=== PATIENT | female | born 1930 | race Caucasian/White ===

== ENCOUNTER 2017-07-17 05:30 | Observation (INO) | payer MEDICAID, OTHER ==
[~2017-07-17] VITALS: Ht 160 cm; Wt 65.0 kg
[~2017-07-17 05:30] MED LIST: AMLO5TAB4 PO; ATOR10TA65 PO; COU25 PO; DULO30CA45 PO; ENOX80DI2 SC; FURO40TA4 PO; GABA300C16 PO; GLIP5TAB13 PO; HYDR-902 PO; METO-448 PO; POTA8CAP PO
[2017-07-17 05:56] VITALS: Ht 160 cm; Wt 65.0 kg
[2017-07-17] MEDS ORDERED: DILTIAZEM 25 MG INJ IV ONE ×2 (06:00→07:30)
[2017-07-17 06:28] LABS: BASOPHIL # 0.1 10^3/ul (0.0-0.1); BASOPHILS % 0.6 % (0.0-2.0); EOSINOPHILS # 0.1 10^3/ul (0.0-0.5); EOSINOPHILS % 0.9 % (0.0-7.0); HEMATOCRIT 39.3 % (37.0-47.0); HEMOGLOBIN 12.8 g/dl (12.0-16.0); LYMPHOCYTES # 1.8 10^3/ul (0.8-2.9); MEAN CORPUSCULAR HEMOGLOBIN 29.1 pg (29.0-33.0); MEAN CORPUSCULAR HGB CONC 32.6 g/dl (32.0-37.0); MEAN CORPUSCULAR VOLUME 89.3 fl (82.0-101.0); MONOCYTE # 0.8 10^3/ul (0.3-0.9); MONOCYTES % 8.9 % (0.0-11.0); NEUTROPHIL # 6.3 10^3/ul (1.6-7.5); NEUTROPHILS % 69.4 % (39.0-77.0); PLATELET COUNT 210 10^3/UL (140-415); RED CELL DISTRIBUTION WIDTH 13.4 % (11.5-14.5); WHITE BLOOD COUNT 9.1 10^3/ul (4.8-10.8)
[2017-07-17 06:42] LABS: INR 1.28; PARTIAL THROMBOPLASTIN TIME 32.7 Sec (25.0-35.0); PROTIME 16.1 Sec (12.2-14.2); PT RATIO 1.3
--- NOTE | 2017-07-17 06:48 | ERA ---
ER Documentation Chief Complaint Date/Time DATE: 07/17/17 TIME: 06:31 Chief Complaint Chest pain and Afib HPI Patient is an 86-year-old female who presents with sudden onset, constant, moderate palpitations since last night. She states that she feels like her heart is beating rapidly. She denies chest pain or shortness of breath. She denies lightheadedness. She denies cough. She also complains of gradual onset , constant, moderate right leg pain from her foot to her knee since yesterday. She denies fall or trauma. She denies fever or vomiting. History is limited due to cognitive impairment. ROS All systems reviewed and are negative except as per history of present illness. Medications Home Meds Active Scripts Warfarin Sod (Coumadin) 2.5 Mg Tab, 5 MG PO DAILY@17 for 14 Days, #14 TAB Prov:SUSHIL WALL MD 06/06/16 Metoprolol Tartrate* (Lopressor*) 25 Mg Tab, 25 MG PO BID for 30 Days, #60 TAB Prov:SUSHIL WALL MD 06/06/16 Enoxaparin Sodium (Enoxaparin Sodium) 80 Mg/0.8 Ml Syringe, 75 MG SC Q12 for 3 Days, BOT Prov:SUSHIL WALL MD 06/06/16 Gabapentin* (Gabapentin*) 300 Mg Capsule, 300 MG PO TID for 30 Days, #90 CAP Prov:SUSHIL AWLL MD 06/06/16 Reported Medications Hydrocodone/Acetaminophen ([place] 10-325 Tablet) 1 Each Tablet, 1 EACH PO BID for 4 Days, #8 TAB 06/03/16 Duloxetine Hcl* (Cymbalta*) 30 Mg Capsule.dr, 30 MG PO DAILY, CAP 07/21/15 Atorvastatin Calcium (Atorvastatin Calcium) 10 Mg Tab, 10 MG PO HS, TAB 07/21/15 Amlodipine Besylate* (Norvasc*) 5 Mg Tablet, 5 MG PO DAILY, TAB 07/21/15 Potassium Chloride* (Potassium Chloride*) 8 Meq Capsule.er, 8 MEQ PO DAILY, CAP 07/21/15 Glipizide* (Glipizide*) 5 Mg Tablet, 5 MG PO DAILY, TAB 07/21/15 Furosemide (Lasix) 40 Mg Tab, 40 MG PO DAILY 05/09/13 Allergies Allergies: Coded Allergies: No Known Allergy (Unverified , 06/03/16) PMhx/Soc Past medical history: Diabetes mellitus, COPD, atrial fibrillation, peripheral neuropathy, mild cognitive impairment Past surgical history: Denies Social history: Lives in assisted living, denies tobacco or alcohol History of Surgery: Yes (L breast lumpectomy, hysterectomy, L ankle sx) Anesthesia Reaction: No Hx Neurological Disorder: Yes (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, multiple CVAs) Hx Respiratory Disorders: No Hx Cardiac Disorders: Yes (dyslipidemia, HTN) Hx Psychiatric Problems: Yes (depression) Hx Miscellaneous Medical Probl: No Hx Alcohol Use: No Hx Substance Use: No Hx Tobacco Use: No Smoking Status: Never smoker FmHx Noncontributory Physical Exam Vitals Vital Signs Date Time Temp Pulse Resp B/P Pulse Ox O2 Delivery O2 Flow Rate FiO2 07/17/17 13:15 69 18 112/48 98 Room Air 07/17/17 12:31 136 18 143/69 98 Room Air 07/17/17 09:42 142 18 118/62 98 Room Air 07/17/17 08:14 129 20 109/95 98 Room Air 07/17/17 07:19 140 18 108/56 98 Room Air 07/17/17 06:59 138 20 121/86 98 Room Air 07/17/17 05:56 97.6 165 19 121/71 95 Physical Exam Const: Alert, no acute distress Head: Atraumatic Eyes: Normal Conjunctiva, No pallor, no icterus ENT: Normal External Ears, Nose and Mouth. Mucous membranes moist Neck: Full range of motion..~ No meningismus. No JVD Resp: Clear to auscultation bilaterally, No wheezes, no rales Cardio: Tachycardia, irregularly irregular rhythm, no murmurs Abd: Soft, non tender, non distended. Skin: No petechiae or rashes Back: No midline or flank tenderness Ext: No cyanosis, or edema, 2+ DP pulses, 2 second cap refill all digits, no calf tenderness, no erythema, no focal tenderness. Neur: Awake and alert, Cranial nerves II through XII intact bilaterally, strength and sensation full in 4 extremities. Psych: Normal Mood and Affect Result Diagram: 07/17/1745 07/17/1745 Results 24 hrs Laboratory Tests Test 07/17/17 05:45 White Blood Count 9.110^3/ul Red Blood Count 4.4010^6/ul Hemoglobin 12.8g/dl Hematocrit 39.3% Mean Corpuscular Volume 89.3fl Mean Corpuscular Hemoglobin 29.1pg Mean Corpuscular Hemoglobin Concent 32.6g/dl Red Cell Distribution Width 13.4% Platelet Count 13387^3/UL Mean Platelet Volume 12.0fl Neutrophils % 69.4% Lymphocytes % 20.0% Monocytes % 8.9% Eosinophils % 0.9% Basophils % 0.6% Nucleated Red Blood Cells % 0.0/100WBC Neutrophils # 6.310^3/ul Lymphocytes # 1.810^3/ul Monocytes # 0.810^3/ul Eosinophils # 0.110^3/ul Basophils # 0.110^3/ul Nucleated Red Blood Cells # 0.010^3/ul Prothrombin Time 16.1Sec Prothrombin Time Ratio 1.3 INR International Normalized Ratio 1.28 Activated Partial Thromboplast Time 32.7Sec Sodium Level 139mmol/L Potassium Level 3.6mmol/L Chloride Level 104mmol/L Carbon Dioxide Level 27mmol/L Anion Gap 12 Blood Urea Nitrogen 14mg/dl Creatinine 0.70mg/dl Glucose Level 183mg/dl Hemoglobin A1c 6.8% Calcium Level 9.2mg/dl Troponin I 0.013ng/ml B-Type Natriuretic Peptide 174PG/ML Thyroid Stimulating Hormone (TSH) 0.804MIU/L Free Thyroxine 1.34ng/dl Current Medications Medications (Trade) Dose Ordered Sig/Mary Route PRN Reason Start Time Stop Time Status Last Admin Dose Admin Diltiazem HCl (Cardizem Iv) 20 mg ONCE ONCE IV 07/17/17 06:00 07/17/17 06:01 DC 07/17/17 06:11 Diltiazem HCl 10 mg 10 mg ONCE ONCE IV 07/17/17 07:30 07/17/17 07:31 DC 07/17/17 07:23 Diltiazem HCl (Cardizem-D5W 125 Mg/125 ml Drip) 125 ml @ 5 mls/hr TITRATE IV 07/17/17 07:30 07/17/17 07:24 Enoxaparin Sodium (Lovenox) 65 mg ONCE SC 07/17/17 08:00 07/17/17 08:06 DC 07/17/17 08:47 Haloperidol (Haldol) 2 mg ONCE ONCE IV 07/17/17 08:30 07/17/17 08:31 DC 07/17/17 08:28 Lorazepam (Ativan) 0.5 mg ONCE ONCE IV 07/17/17 09:00 07/17/17 09:01 DC 07/17/17 08:44 Ondansetron HCl (Zofran Inj) 4 mg ER BRIDGE PRN IV NAUSEA AND/OR VOMITING 07/17/17 09:00 07/18/17 08:59 Acetaminophen (Tylenol Tab) 650 mg ER BRIDGE PRN PO MILD PAIN/FEVER 07/17/17 09:00 07/18/17 08:59 IV Flush (NS 3 ml) 3 ml PER PROTOCOL IV 07/17/17 09:30 Ondansetron HCl (Zofran Inj) 4 mg Q6H PRN IV NAUSEA AND/OR VOMITING 07/17/17 09:30 Acetaminophen (Tylenol Tab) 650 mg Q6H PRN PO PAIN LEVEL 1-3 OR FEVER 07/17/17 09:30 Acetaminophen/ Hydrocodone Bitart ([place] (5/325)) 1 tab Q6H PRN PO PAIN LEVEL 4-6 07/17/17 09:30 Amlodipine Besylate (Norvasc) 5 mg DAILY PO 07/18/17 09:00 Atorvastatin Calcium (Lipitor) 10 mg HS PO 07/17/17 21:00 Duloxetine HCl (Cymbalta) 30 mg DAILY PO 07/18/17 09:00 Furosemide (Lasix) 40 mg DAILY PO 07/18/17 09:00 Gabapentin (Neurontin) 300 mg TID PO 07/17/17 13:00 Metoprolol Tartrate (Lopressor) 25 mg BID PO 07/17/17 21:00 Enoxaparin Sodium (Lovenox) 65 mg Q12 SC 07/17/17 21:00 Miscellaneous Information (* Miscellaneous Pharmacy Order) Discontinue current oral sulfonylur... ONCE ONCE XX 07/17/17 10:00 07/17/17 10:01 DC Diagnostic Test (Pha) (Accu-Chek) 1 ea 02 XX 07/18/17 02:00 Insulin Glargine (Lantus) 10 unit DAILY@08 SC 07/18/17 08:00 Insulin Aspart (Novolog Insulin Pen) 3 unit WITH MEALS SC 07/17/17 12:00 Miscellaneous Information (* Miscellaneous Pharmacy Order) HYPOGLYCEMIA PROTOCOL w... ONCE ONCE XX 07/17/17 10:00 07/17/17 10:01 DC Insulin Aspart (Novolog Insulin Pen) NOVOLOG *MILD* ALGORITHM WITH MEALS BEDTIME SC 07/17/17 12:00 Miscellaneous Information (* Miscellaneous Pharmacy Order) Discontinue all previ... ONCE ONCE XX 07/17/17 10:00 07/17/17 10:01 DC Miscellaneous Information 1 ea NOTE XX 07/17/17 10:00 Glucose (Glutose) 15 gm Q15M PRN PO DECREASED GLUCOSE 07/17/17 10:00 Glucose (Glutose) 22.5 gm Q15M PRN PO DECREASED GLUCOSE 07/17/17 10:00 Dextrose (D50w Syringe) 25 ml Q15M PRN IV DECREASED GLUCOSE 07/17/17 10:00 Dextrose (D50w Syringe) 50 ml Q15M PRN IV DECREASED GLUCOSE 07/17/17 10:00 Glucagon (Glucagen) 1 mg Q15M PRN IM DECREASED GLUCOSE 07/17/17 10:00 Glucose (Glutose) 15 gm Q15M PRN BUCCAL DECREASED GLUCOSE 07/17/17 10:00 Haloperidol (Haldol) 2 mg ONCE ONCE IV 07/17/17 12:00 07/17/17 12:01 DC 07/17/17 12:33 Lorazepam (Ativan) 0.5 mg ONCE ONCE IV 07/17/17 12:30 07/17/17 12:35 DC 07/17/17 12:30 Aspirin (Aspirin) 81 mg ONCE ONCE PO 07/17/17 15:00 07/17/17 15:01 UNV Procedures/MDM EKG read by me: Time 538, rate 152 Rhythm: Rapid atrial fibrillation Bishop: Normal Intervals: Normal ST-T waves: ST depression in inferior and lateral leads, ST elevation in aVR only Ectopy: No Q-waves: No Impression: Rapid atrial fibrillation with ST depressions suggestive of ischemia MDM: Patient is an 86-year-old female with history of chronic atrial fibrillation on Coumadin who presents to the ER with palpitations since last night. She initially reported chest pain, but to me denies chest pain or shortness of breath. She was given an initial bolus of 20 mg of diltiazem without rate control. I gave an additional bolus of 10 mg of diltiazem and started her on a diltiazem drip. Patient had borderline blood pressure after the second bolus of diltiazem and was monitored closely. Her EKG showed ST depressions, but her troponin was not elevated. She is given a dose of Lovenox due to subtherapeutic INR. She will be admitted to telemetry for further cardiac workup and treatment. Critical Care Time: 32 minutes Treatments/Evaluations: Close monitoring and treatment of unstable vital signs, cardiorespiratory, and neurologic status, while maintaining tight balance of fluid, respiratory, and cardiac interventions. This time includes discussing the case with the patient and the patient's family. This time does not include all procedures stated elsewhere in this record. This time also includes reviewing old records, labs and radiological studies. This time includes examining and re-examining the patient. Additionally, this time also includes arranging care with admitting and consulting physicians. Departure Diagnosis: Primary Impression: Atrial fibrillation with rapid ventricular response Condition: MARNIE Rivera MD Jul 17, 2017 06:47
[2017-07-17 07:00] LABS: CALCIUM 9.2 mg/dl (8.4-10.2); CREATININE 0.7 mg/dl (0.44-1.00); POTASSIUM 3.6 mmol/L (3.5-5.1); TROPONIN-I 0.013 ng/ml (0.00-0.12)
--- NOTE | 2017-07-17 07:25 | RADRPT ---
PROCEDURE: CHEST - 1 VIEW CLINICAL INDICATION: 86-year-old female with chest pain. TECHNIQUE: A single frontal AP view of the chest was performed. The images were reviewed on a PAC S workstation. COMPARISON: Chest x-ray June 03, 2016. FINDINGS: The cardiomediastinal silhouette is within normal limits. The thoracic aortic arch is calcified. Th ere is no evidence for an infiltrate. There is no evidence for congestive heart failure. There is n o evidence for pneumothorax. Degenerative changes are seen within the spine. IMPRESSION: 1. No evidence for active cardiopulmonary disease. 2. Calcified thoracic aortic arch. 3. Degenerative changes within the spine. .Alberto Mckeon MD, Date Time Electronically viewed and signed by .Alberto Mckeon MD, on 07/17/2017 07:25 .Rylan
[2017-07-17] MEDS ORDERED: DILTIAZEM-D5W 125MG/125ML DRIP 125 ML IV SCH (07:30)
[2017-07-17] MEDS ORDERED: ENOXAPARIN 80 MG/0.8 ML SYG SC SCH (08:00)
[2017-07-17] MEDS ORDERED: HALOPERIDOL 5 MG INJ IV ONE ×2 (08:30→12:00)
[2017-07-17] MEDS ORDERED: ONDANSETRON 4 MG INJ IV PRN ×2 (09:00→09:30)
[2017-07-17] MEDS ORDERED: ACETAMINOPHEN 325 MG TAB PO PRN ×2 (09:00→09:30)
[2017-07-17] MEDS ORDERED: LORAZEPAM 2 MG INJ IV ONE ×2 (09:00→12:30)
[2017-07-17] MEDS ORDERED: NACL 0.9% 3 ML SYG IV SCH (09:30)
--- NOTE | 2017-07-17 09:47 | HP ---
Date/Time of Note Date/Time of Note DATE: 07/17/17 TIME: 09:43 Assessment/Plan VTE Prophylaxis VTE Prophylaxis Intervention: LMWH (Therapeutic anticoagulation) Lines/Catheters IV Catheter Type (from [facility] [place] Assessment/Plan Chief Complaint/Hosp Course 1. Atrial fibrillation with rapid ventricular response. Status post IV Cardizem push followed by Cardizem drip. Currently the heart rate is controlled. The patient has known history of atrial fibrillation. The patient is on Coumadin. However, the patient's INR is not therapeutic. Hence, the patient will be started on therapeutic Lovenox. Cardiology will evaluate the patient. The patient will be ruled out for any underlying acute coronary syndrome. 2. Essential hypertension. The patient has history of essential hypertension. The patient will be resumed on antihypertensives. 3. Type 2 diabetes mellitus. The patient's sulfonylureas will be put on hold. The patient will be started on sliding scale insulin along with basal insulin and pre-meal insulin. Hemoglobin A1c will be obtained to evaluate the blood glucose control over the past few weeks. 4. Diabetic neuropathy. The patient will be continued on gabapentin. 5. Depression. The patient will be continued on SNRIs. 6. Dyslipidemia. The patient will be continued on statins. A fasting lipid panel will be obtained. 7. History of stroke. Continue anticoagulation and statins. Plan: The patient will be admitted to inpatient telemetry floor. The patient will be started on a carbohydrate controlled diet. The patient will be started on DVT prophylaxis. The patient will remain a full code. Activities will be as tolerated. The rest of the patient's management will be based on the clinical course, inputs from consultants, and the results of diagnostic studies. Based on the patient's clinical presentation, she most probably requires at least 2 midnights' stay for further management and evaluation of her clinical presentation. The case and management of this patient was fully discussed with . Problems: HPI/ROS Admit Date/Time Admit Date/Time Hx of Present Illness Reason for admission: Palpitations. Consultants 1. Brown Boo MD, Cardiology. This is an 86-year-old female with past medical history of atrial fibrillation on therapeutic anticoagulation, type 2 diabetes mellitus with diabetic neuropathy, dyslipidemia, CVA, essential hypertension, chronic degenerative arthritis, and depression who was brought in from a assisted living facility because of palpitations as well as chest pain. Patient was given aspirin 162 mg and 1 dose of sublingual nitroglycerin enroute to the emergency room. According to the ER documentation, chest pain has been resolved once she arrived to the emergency room. There was no reported dyspnea. In the emergency room, the patient was tachycardic with the heart rate up to 160s. The patient was treated with IV Cardizem and single dose of subcutaneous Lovenox. The patient was started on a Cardizem drip because of sustained atrial fibrillation. The patient was reportedly impulsive and restless. Hence the patient was given IV lorazepam as well as IV Haldol in the emergency room. ROS Subjective hx not possible: other (The patient is sedated with Haldol and lorazepam.) PMH/Family/Social Past Medical History Medical History: diabetes, high cholesterol, hypertension, other (CVA, diabetic neuropathy, depression) Past Surgical History Hysterectomy due to bleeding Left ankle surgery Left breast lumpectomy for a benign mass Social History Patient lives in an assisted living facility. Alcohol Use: none Smoking Status: Never smoker Drug Use: none Exam/Review of Systems Vital Signs Vitals Vital Signs Date Time Temp Pulse Resp B/P Pulse Ox O2 Delivery O2 Flow Rate FiO2 07/17/17 07:19 140 18 108/56 98 Room Air 07/17/17 05:56 97.6 Exam Exam General: Adequately build 86 year-old female lying in bed in no apparent distress. HEENT: Normocephalic, atraumatic. Eyes: Anicteric sclerae, conjunctivae clear. ENT: Nasal septum midline, oral mucosa moist. Neck supple, no JVD noticed. Respiratory: Bilaterally clear breath sounds. No use of accessory muscles of respiration. No adventitious breath sounds. Cardiovascular: S1, S2 heard. Irregularly irregular rhythm. Abdomen: Soft, nontender, and nondistended. Bowel sounds positive in all 4 quadrants. Genitourinary: Deferred. Extremities: No cyanosis, no clubbing. Bilateral lower extremity trace pedal edema., no edema. Peripheral pulses palpable. Neurologic: She is currently somnolent. Skin: Normal skin turgor. No skin rashes. Labs Result Diagram: 07/17/1754407/17/17544 Medications Medications Current Medications Diltiazem HCl (Cardizem-D5W 125 Mg/125 ml Drip) 125 ml @ 5 mls/hr TITRATE IV Last administered on 07/17/17t 07:24; Admin Dose 5 MLS/HR; Start 07/17/17 at 07: 30 Procedures Procedures CXR IMPRESSION: 1. No evidence for active cardiopulmonary disease. 2. Calcified thoracic aortic arch. 3. Degenerative changes within the spine. 12-Lead EKG A. fib with RVR JULIANN VALDES NP Jul 17, 2017 09:47 JULIANN VALDES NP Jul 17, 2017 09:47
[2017-07-17] MEDS ORDERED: DEXTROSE 50% 50 ML SYRINGE IV PRN ×2 (10:00)
[2017-07-17] MEDS ORDERED: GLUCOSE GEL 15 GRAM TUBE BUCCAL PRN (10:00)
[2017-07-17] MEDS ORDERED: GLUCOSE GEL 15 GRAM TUBE PO PRN ×2 (10:00)
[2017-07-17] MEDS ORDERED: GLUCAGON 1 MG INJ IM PRN (10:00)
[2017-07-17] MEDS: INSULIN ASPART [NOVOLOG] 3 ML PEN SC SCH ×3 (12:00→21:00)
[2017-07-17] MEDS: GABAPENTIN 300 MG CAP PO SCH ×2 (13:00→21:30)
[2017-07-17] MEDS ORDERED: ASPIRIN 81 MG TAB PO ONE (15:00)
--- NOTE | 2017-07-17 15:03 | CONS ---
Date/Time of Note Date/Time of Note DATE: 07/17/17 TIME: 14:56 Assessment/Plan Assessment/Plan Chief Complaint/Hosp Course Paroxysmal atrial fibrillation with RVR: Initially on a cardizem drip, now back on sinus. Was on coumadin as of last year's admission, now appears to be off for unclear reasons. Possibly switch to NOAC instead for ease of use in this pt. Dyspnea/chest pain: Likely from afib with RVR. EKG did show ST changes during afib and the pt likely has underlying CAD but will treat medically H/o diastolic heart failure: appears compensated by exam. H/o CVA HTN -ASA, lipitor -metoprolol 25mg PO BID -if recurrent afib with RVR, may even consider amiodarone superintendent terminal for her -will consider starting NOAC pending further test results -echo Problems: Consultation Date/Type/Reason Admit Date/Time Date of Consultation: Jul 17, 2017 Type of Consultation: Cardiology Reason for Consultation Afib with RVR Referring Provider: JULIANN VALDES NP Hx of Present Illness 86 yo F with a h/o paroxysmal afib previously on coumadin, h/o CVA, dementia, HTN, CHF, who presented from her assisted living facility with chest pain and SOB and was found to have afib with RVR (rate 150-160s). The pt was placed on a diltiazem drip and currently is back in sinus. She was agitated and so she has been given ativan and haldol. She is awake and responsive but confused and unable to provide history. Past Medical History Medical History: diabetes, high cholesterol, hypertension, other (CVA, diabetic neuropathy, depression) Social History Alcohol Use: none Smoking Status: Never smoker Drug Use: none Exam/Review of Systems Vital Signs Vitals Vital Signs Date Time Temp Pulse Resp B/P Pulse Ox O2 Delivery O2 Flow Rate FiO2 07/17/17 13:15 69 18 112/48 98 Room Air 07/17/17 05:56 97.6 Exam Constitutional: alert, No oriented Psych: no complaints Head: atraumatic, normocephalic Eyes: nl conjunctiva ENMT: nl external ears & nose Neck: No jvd Respiratory: clear to auscultation Cardiovascular: regular rate and rhythm, systolic murmur (2/6 DOT), No edema Gastrointestinal: non-tender, soft Neurological: nl mental status, nl speech Skin: No rash or lesions Results EKG: afib with RVR, diffuse mild ST depression and YOSSI in AVR Result Diagram: 07/17/1745 07/17/1745 Results 24 hrs Laboratory Tests Test 07/17/17 05:45 White Blood Count 9.1 # Red Blood Count 4.40 Hemoglobin 12.8 Hematocrit 39.3 Mean Corpuscular Volume 89.3 Mean Corpuscular Hemoglobin 29.1 Mean Corpuscular Hemoglobin Concent 32.6 Red Cell Distribution Width 13.4 Platelet Count 210 Mean Platelet Volume 12.0 #H Neutrophils % 69.4 Lymphocytes % 20.0 Monocytes % 8.9 Eosinophils % 0.9 Basophils % 0.6 Nucleated Red Blood Cells % 0.0 Neutrophils # 6.3 Lymphocytes # 1.8 Monocytes # 0.8 Eosinophils # 0.1 Basophils # 0.1 Nucleated Red Blood Cells # 0.0 Prothrombin Time 16.1 H Prothrombin Time Ratio 1.3 INR International Normalized Ratio 1.28 Activated Partial Thromboplast Time 32.7 Sodium Level 139 Potassium Level 3.6 Chloride Level 104 Carbon Dioxide Level 27 Anion Gap 12 Blood Urea Nitrogen 14 Creatinine 0.70 Glucose Level 183 Hemoglobin A1c 6.8 H Calcium Level 9.2 Troponin I 0.013 B-Type Natriuretic Peptide 174 Thyroid Stimulating Hormone (TSH) 0.804 Free Thyroxine 1.34 Medications Medications Current Medications Diltiazem HCl (Cardizem-D5W 125 Mg/125 ml Drip) 125 ml @ 5 mls/hr TITRATE IV Last administered on 07/17/17t 07:24; Admin Dose 5 MLS/HR; Start 07/17/17 at 07: 30 Ondansetron HCl (Zofran Inj) 4 mg Q6H PRN IV NAUSEA AND/OR VOMITING; Start 07/17/17 at 09:30 Acetaminophen (Tylenol Tab) 650 mg Q6H PRN PO PAIN LEVEL 1-3 OR FEVER; Start 07/17/17 at 09:30 Acetaminophen/ Hydrocodone Bitart ([place] (5/325)) 1 tab Q6H PRN PO PAIN LEVEL 4 -6; Start 07/17/17 at 09:30 Amlodipine Besylate (Norvasc) 5 mg DAILY PO ; Start 07/18/17 at 09:00 Atorvastatin Calcium (Lipitor) 10 mg HS PO ; Start 07/17/17 at 21:00 Duloxetine HCl (Cymbalta) 30 mg DAILY PO ; Start 07/18/17 at 09:00 Furosemide (Lasix) 40 mg DAILY PO ; Start 07/18/17 at 09:00 Gabapentin (Neurontin) 300 mg TID PO ; Start 07/17/17 at 13:00 Metoprolol Tartrate (Lopressor) 25 mg BID PO ; Start 07/17/17 at 21:00 Enoxaparin Sodium (Lovenox) 65 mg Q12 SC ; Start 07/17/17 at 21:00 Diagnostic Test (Pha) (Accu-Chek) 1 ea 02 XX ; Start 07/18/17 at 02:00 Insulin Glargine (Lantus) 10 unit DAILY@08 SC ; Start 07/18/17 at 08:00 Miscellaneous Information 1 ea NOTE XX ; Start 07/17/17 at 10:00 Glucose (Glutose) 15 gm Q15M PRN PO DECREASED GLUCOSE; Start 07/17/17 at 10:00 Glucose (Glutose) 22.5 gm Q15M PRN PO DECREASED GLUCOSE; Start 07/17/17 at 10: 00 Dextrose (D50w Syringe) 25 ml Q15M PRN IV DECREASED GLUCOSE; Start 07/17/17 at 10:00 Dextrose (D50w Syringe) 50 ml Q15M PRN IV DECREASED GLUCOSE; Start 07/17/17 at 10:00 Glucagon (Glucagen) 1 mg Q15M PRN IM DECREASED GLUCOSE; Start 07/17/17 at 10:00 Glucose (Glutose) 15 gm Q15M PRN BUCCAL DECREASED GLUCOSE; Start 07/17/17 at 10 :00 TONY MCCLELLAND Jul 17, 2017 15:03
[2017-07-17 18:09] VITALS: PULSE 66
[2017-07-17 18:11] VITALS: PULSE 66
[2017-07-17 19:06] VITALS: BP 130/60; RESP 17
[2017-07-17 19:34] LABS: CREATINE KINASE 143 IU/L (23-200)
[2017-07-17 19:45] LABS: CK-MB 1.48 ng/ml (0.0-2.4)
[2017-07-17 19:46] LABS: TROPONIN-I < 0.012 ng/ml (0.00-0.12)
[2017-07-17 20:23] VITALS: PULSE 64
[2017-07-17] MEDS: HYDROCODONE/APAP (5/325) TAB PO PRN (21:29)
[2017-07-17] MEDS: ATORVASTATIN 10 MG TAB PO SCH (21:29)
[2017-07-17] MEDS: METOPROLOL 25 MG TAB PO SCH (21:31)
[2017-07-17] MEDS: ENOXAPARIN 80 MG/0.8 ML SYG SC SCH (21:46)
[2017-07-17 23:18] VITALS: BP 135/61; RESP 18
[2017-07-18] VITALS (12 sets, daily range): BP systolic 104–153; BP diastolic 51–85; PULSE 59–66; RESP 16–20
[2017-07-18 01:49] LABS: CREATINE KINASE 152 IU/L (23-200)
[2017-07-18] MEDS: ACCU-CHEK XX SCH (01:58)
[2017-07-18 02:01] LABS: CK-MB 1.27 ng/ml (0.0-2.4)
[2017-07-18 02:27] LABS: TROPONIN-I < 0.012 ng/ml (0.00-0.12)
[2017-07-18] MEDS: HYDROCODONE/APAP (5/325) TAB PO PRN (03:18)
[2017-07-18 05:58] LABS: BASOPHIL # 0.1 10^3/ul (0.0-0.1); BASOPHILS % 0.8 % (0.0-2.0); EOSINOPHILS # 0.3 10^3/ul (0.0-0.5); EOSINOPHILS % 4.6 % (0.0-7.0); HEMATOCRIT 37.8 % (37.0-47.0); HEMOGLOBIN 12.2 g/dl (12.0-16.0); LYMPHOCYTES # 1.5 10^3/ul (0.8-2.9); LYMPHOCYTES % 23.9 % (15.0-51.0); MEAN CORPUSCULAR HEMOGLOBIN 29.6 pg (29.0-33.0); MEAN CORPUSCULAR HGB CONC 32.3 g/dl (32.0-37.0); MEAN CORPUSCULAR VOLUME 91.7 fl (82.0-101.0); MEAN PLATELET VOLUME 11.9 fl (7.4-10.4); MONOCYTE # 0.6 10^3/ul (0.3-0.9); MONOCYTES % 9.5 % (0.0-11.0); NEUTROPHIL # 3.9 10^3/ul (1.6-7.5); NEUTROPHILS % 60.9 % (39.0-77.0); PLATELET COUNT 188 10^3/UL (140-415); RED BLOOD COUNT 4.12 10^6/ul (4.20-5.40); RED CELL DISTRIBUTION WIDTH 13.2 % (11.5-14.5); WHITE BLOOD COUNT 6.3 10^3/ul (4.8-10.8)
[2017-07-18 06:10] LABS: INR 1.18; PROTIME 15.1 Sec (12.2-14.2); PT RATIO 1.2
[2017-07-18 06:19] LABS: CHOL/HDL RATIO 2.3 RATIO; CHOLESTEROL 131 mg/dl (100-200); HDL CHOLESTEROL 56 mg/dl (33-92); MAGNESIUM 2.1 mg/dl (1.7-2.5); PHOSPHORUS 3.3 mg/dl (2.5-4.9); TRIGLYCERIDES 101 mg/dl (0-149)
[2017-07-18 06:25] LABS: CALCIUM 8.8 mg/dl (8.4-10.2); CREATININE 0.66 mg/dl (0.44-1.00); POTASSIUM 3.7 mmol/L (3.5-5.1)
[2017-07-18 06:30] LABS: TROPONIN-I < 0.012 ng/ml (0.00-0.12)
[2017-07-18] MEDS: INSULIN ASPART [NOVOLOG] 3 ML PEN SC SCH ×7 (07:55→21:00)
[2017-07-18] MEDS: INSULIN GLARGINE [LANtus] 3 ML PEN SC SCH (08:35)
[2017-07-18] MEDS: DULOXETINE 30 MG CAP DR PO SCH (08:45)
[2017-07-18] MEDS: METOPROLOL 25 MG TAB PO SCH ×2 (08:46→21:07)
[2017-07-18] MEDS: GABAPENTIN 300 MG CAP PO SCH ×3 (08:46→21:07)
[2017-07-18] MEDS: AMLODIPINE 5 MG TAB PO SCH (08:46)
[2017-07-18] MEDS: FUROSEMIDE 40 MG TAB PO SCH (08:47)
[2017-07-18] MEDS: ENOXAPARIN 80 MG/0.8 ML SYG SC SCH ×2 (08:54→21:14)
--- NOTE | 2017-07-18 13:05 | CONS ---
Date/Time of Note Date/Time of Note DATE: 07/18/17 TIME: 13:04 Assessment/Plan Assessment/Plan Chief Complaint/Hosp Course Paroxysmal atrial fibrillation with RVR: Initially on a cardizem drip, now back on sinus. Was on coumadin as of last year's admission, now appears to be off for unclear reasons. Possibly switch to NOAC instead for ease of use in this pt. Dyspnea/chest pain: Likely from afib with RVR. EKG did show ST changes during afib and the pt likely has underlying CAD but will treat medically H/o diastolic heart failure: appears compensated by exam. 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 Remains in sinus. Still confused Exam/Review of Systems Vital Signs Vitals Vital Signs Date Time Temp Pulse Resp B/P Pulse Ox O2 Delivery O2 Flow Rate FiO2 07/18/17 12:22 59 07/18/17 12:07 98.5 20 104/51 96 07/17/17 17:03 Room Air Exam Constitutional: alert, No oriented Psych: nl mood/affect, no complaints Head: atraumatic, normocephalic Neck: No jvd Respiratory: clear to auscultation, No crackles/rales Cardiovascular: edema (trace), regular rate and rhythm, No systolic murmur Gastrointestinal: non-tender, soft Neurological: nl mental status, nl speech Results Result Diagram: 07/18/17 0510 07/18/17 0510 Results 24 hrs Laboratory Tests Test 07/17/17 19:03 07/17/17 21:58 07/18/17 01:01 07/18/17 05:10 Creatine Kinase 143 152 Creatine Kinase Index 1.0 0.8 Creatinine Kinase MB (Mass) 1.48 1.27 Troponin I < 0.012 < 0.012 < 0.012 Bedside Glucose 110 White Blood Count 6.3 # Red Blood Count 4.12 L Hemoglobin 12.2 Hematocrit 37.8 Mean Corpuscular Volume 91.7 Mean Corpuscular Hemoglobin 29.6 Mean Corpuscular Hemoglobin Concent 32.3 Red Cell Distribution Width 13.2 Platelet Count 188 Mean Platelet Volume 11.9 H Neutrophils % 60.9 Lymphocytes % 23.9 Monocytes % 9.5 Eosinophils % 4.6 Basophils % 0.8 Nucleated Red Blood Cells % 0.0 Neutrophils # 3.9 Lymphocytes # 1.5 Monocytes # 0.6 Eosinophils # 0.3 Basophils # 0.1 Nucleated Red Blood Cells # 0.0 Prothrombin Time 15.1 H Prothrombin Time Ratio 1.2 INR International Normalized Ratio 1.18 Sodium Level 138 Potassium Level 3.7 Chloride Level 104 Carbon Dioxide Level 30 Anion Gap 8 Blood Urea Nitrogen 12 Creatinine 0.66 Glucose Level 122 # Calcium Level 8.8 Phosphorus Level 3.3 Magnesium Level 2.1 Triglycerides Level 101 Cholesterol Level 131 LDL Cholesterol, Calculated 55 HDL Cholesterol 56 Cholesterol/HDL Ratio 2.3 Test 07/18/17 08:27 07/18/17 12:07 Bedside Glucose 121 101 Medications Medications Current Medications Diltiazem HCl (Cardizem-D5W 125 Mg/125 ml Drip) 125 ml @ 5 mls/hr TITRATE IV Last administered on 07/17/17 07:24; Admin Dose 5 MLS/HR; Start 07/17/17 at 07: 30 Ondansetron HCl (Zofran Inj) 4 mg Q6H PRN IV NAUSEA AND/OR VOMITING; Start 07/17/17 at 09:30 Acetaminophen (Tylenol Tab) 650 mg Q6H PRN PO PAIN LEVEL 1-3 OR FEVER; Start 07/17/17 at 09:30 Acetaminophen/ Hydrocodone Bitart ([place] (5/325)) 1 tab Q6H PRN PO PAIN LEVEL 4 -6 Last administered on 07/18/17 03:18; Admin Dose 1 TAB; Start 07/17/17 at 09: 30 Amlodipine Besylate (Norvasc) 5 mg DAILY PO Last administered on 07/18/17 08: 46; Admin Dose 5 MG; Start 07/18/17 at 09:00 Atorvastatin Calcium (Lipitor) 10 mg HS PO Last administered on 07/17/17 21:29 ; Admin Dose 10 MG; Start 07/17/17 at 21:00 Duloxetine HCl (Cymbalta) 30 mg DAILY PO Last administered on 07/18/17 08:45; Admin Dose 30 MG; Start 07/18/17 at 09:00 Furosemide (Lasix) 40 mg DAILY PO Last administered on 07/18/17 08:47; Admin Dose 40 MG; Start 07/18/17 at 09:00 Gabapentin (Neurontin) 300 mg TID PO Last administered on 07/18/17 12:42; Admin Dose 300 MG; Start 07/17/17 at 13:00 Metoprolol Tartrate (Lopressor) 25 mg BID PO Last administered on 07/18/17 08: 46; Admin Dose 25 MG; Start 07/17/17 at 21:00 Enoxaparin Sodium (Lovenox) 65 mg Q12 SC Last administered on 07/18/17 08:54; Admin Dose 65 MG; Start 07/17/17 at 21:00 Diagnostic Test (Pha) (Accu-Chek) 1 ea 02 XX ; Start 07/18/17 at 02:00 Insulin Glargine (Lantus) 10 unit DAILY@08 SC Last administered on 07/18/17 08 :35; Admin Dose 10 UNIT; Start 07/18/17 at 08:00 Miscellaneous Information 1 ea NOTE XX ; Start 07/17/17 at 10:00 Glucose (Glutose) 15 gm Q15M PRN PO DECREASED GLUCOSE; Start 07/17/17 at 10:00 Glucose (Glutose) 22.5 gm Q15M PRN PO DECREASED GLUCOSE; Start 07/17/17 at 10: 00 Dextrose (D50w Syringe) 25 ml Q15M PRN IV DECREASED GLUCOSE; Start 07/17/17 at 10:00 Dextrose (D50w Syringe) 50 ml Q15M PRN IV DECREASED GLUCOSE; Start 07/17/17 at 10:00 Glucagon (Glucagen) 1 mg Q15M PRN IM DECREASED GLUCOSE; Start 07/17/17 at 10:00 Glucose (Glutose) 15 gm Q15M PRN BUCCAL DECREASED GLUCOSE; Start 07/17/17 at 10 :00 TONY MCCLELLAND Jul 18, 2017 13:05
--- NOTE | 2017-07-18 16:02 | PN ---
Date/Time of Note Date/Time of Note DATE: 07/18/17 TIME: 15:59 Assessment/Plan VTE Prophylaxis VTE Prophylaxis Intervention: SCD's Lines/Catheters [facility] Saline Lock Urinary Cath still in place: No Assessment/Plan Chief Complaint/Hosp Course Assessment and plan 1. Atrial fibrillation with RVR. Patient status post Cardizem drip. Surface Mount Technology Operator following. Rate controlled at present. Follow-up echocardiogram. Follow-up with knife grinder for anticoagulation regimen. 2. Essential hypertension. Continue antihypertensives and adjust needed 3. Type 2 diabetes. Continue insulin sliding scale. Stable at present. 4. Diabetic neuropathy. Continue with Neurontin 5. Depression. Will continue patient's home medication 6. Dyslipidemia. Continue statin 7. History of stroke. Anticoagulation per knife grinder. Continue on statin Disposition and plan: Monitor on telemetry for now. Follow-up with knife grinder for anticoagulation regimen. Follow-up on echo. He said medically stable for by consultants Discussed plan of care with Dr. Schultz Problems: Subjective 24 Hr Interval Summary Free Text/Dictation No further reports of chest pain shortness of breath. Comfortable at present. 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, nl mental status, nl speech Results Result Diagram: 07/18/1710 07/18/1710 Results 24 hrs Laboratory Tests Test 07/17/17 19:03 07/17/17 21:58 07/18/17 01:01 07/18/17 05:10 Creatine Kinase 143 152 Creatine Kinase Index 1.0 0.8 Creatinine Kinase MB (Mass) 1.48 1.27 Troponin I < 0.012 < 0.012 < 0.012 Bedside Glucose 110 White Blood Count 6.3 # Red Blood Count 4.12 L Hemoglobin 12.2 Hematocrit 37.8 Mean Corpuscular Volume 91.7 Mean Corpuscular Hemoglobin 29.6 Mean Corpuscular Hemoglobin Concent 32.3 Red Cell Distribution Width 13.2 Platelet Count 188 Mean Platelet Volume 11.9 H Neutrophils % 60.9 Lymphocytes % 23.9 Monocytes % 9.5 Eosinophils % 4.6 Basophils % 0.8 Nucleated Red Blood Cells % 0.0 Neutrophils # 3.9 Lymphocytes # 1.5 Monocytes # 0.6 Eosinophils # 0.3 Basophils # 0.1 Nucleated Red Blood Cells # 0.0 Prothrombin Time 15.1 H Prothrombin Time Ratio 1.2 INR International Normalized Ratio 1.18 Sodium Level 138 Potassium Level 3.7 Chloride Level 104 Carbon Dioxide Level 30 Anion Gap 8 Blood Urea Nitrogen 12 Creatinine 0.66 Glucose Level 122 # Calcium Level 8.8 Phosphorus Level 3.3 Magnesium Level 2.1 Triglycerides Level 101 Cholesterol Level 131 LDL Cholesterol, Calculated 55 HDL Cholesterol 56 Cholesterol/HDL Ratio 2.3 Test 07/18/17 08:27 07/18/17 12:07 Bedside Glucose 121 101 Medications Medications Current Medications Diltiazem HCl (Cardizem-D5W 125 Mg/125 ml Drip) 125 ml @ 5 mls/hr TITRATE IV Last administered on 07/17/17 07:24; Admin Dose 5 MLS/HR; Start 07/17/17 at 07: 30 Ondansetron HCl (Zofran Inj) 4 mg Q6H PRN IV NAUSEA AND/OR VOMITING; Start 07/17/17 at 09:30 Acetaminophen (Tylenol Tab) 650 mg Q6H PRN PO PAIN LEVEL 1-3 OR FEVER; Start 07/17/17 at 09:30 Acetaminophen/ Hydrocodone Bitart ([place] (5/325)) 1 tab Q6H PRN PO PAIN LEVEL 4 -6 Last administered on 07/18/17 03:18; Admin Dose 1 TAB; Start 07/17/17 at 09: 30 Amlodipine Besylate (Norvasc) 5 mg DAILY PO Last administered on 07/18/17 08: 46; Admin Dose 5 MG; Start 07/18/17 at 09:00 Atorvastatin Calcium (Lipitor) 10 mg HS PO Last administered on 07/17/17 21:29 ; Admin Dose 10 MG; Start 07/17/17 at 21:00 Duloxetine HCl (Cymbalta) 30 mg DAILY PO Last administered on 07/18/17 08:45; Admin Dose 30 MG; Start 07/18/17 at 09:00 Furosemide (Lasix) 40 mg DAILY PO Last administered on 07/18/17 08:47; Admin Dose 40 MG; Start 07/18/17 at 09:00 Gabapentin (Neurontin) 300 mg TID PO Last administered on 07/18/17 12:42; Admin Dose 300 MG; Start 07/17/17 at 13:00 Metoprolol Tartrate (Lopressor) 25 mg BID PO Last administered on 07/18/17 08: 46; Admin Dose 25 MG; Start 07/17/17 at 21:00 Enoxaparin Sodium (Lovenox) 65 mg Q12 SC Last administered on 07/18/17 08:54; Admin Dose 65 MG; Start 07/17/17 at 21:00 Diagnostic Test (Pha) (Accu-Chek) 1 ea 02 XX ; Start 07/18/17 at 02:00 Insulin Glargine (Lantus) 10 unit DAILY@08 SC Last administered on 07/18/17 08 :35; Admin Dose 10 UNIT; Start 07/18/17 at 08:00 Miscellaneous Information 1 ea NOTE XX ; Start 07/17/17 at 10:00 Glucose (Glutose) 15 gm Q15M PRN PO DECREASED GLUCOSE; Start 07/17/17 at 10:00 Glucose (Glutose) 22.5 gm Q15M PRN PO DECREASED GLUCOSE; Start 07/17/17 at 10: 00 Dextrose (D50w Syringe) 25 ml Q15M PRN IV DECREASED GLUCOSE; Start 07/17/17 at 10:00 Dextrose (D50w Syringe) 50 ml Q15M PRN IV DECREASED GLUCOSE; Start 07/17/17 at 10:00 Glucagon (Glucagen) 1 mg Q15M PRN IM DECREASED GLUCOSE; Start 07/17/17 at 10:00 Glucose (Glutose) 15 gm Q15M PRN BUCCAL DECREASED GLUCOSE; Start 07/17/17 at 10 :00 TOMY MURILLO Jul 18, 2017 16:02
[2017-07-18] MEDS: ATORVASTATIN 10 MG TAB PO SCH (21:07)
[2017-07-19] VITALS (10 sets, daily range): BP systolic 128–151; BP diastolic 56–67; PULSE 60–115; RESP 16–20
[2017-07-19] MEDS: ACCU-CHEK XX SCH (02:00)
--- NOTE | 2017-07-19 07:06 | CONS ---
Date/Time of Note Date/Time of Note DATE: 07/19/17 TIME: 07:04 Assessment/Plan Assessment/Plan Chief Complaint/Hosp Course Paroxysmal atrial fibrillation with RVR: Was on coumadin as of last year's admission, now appears to be off for unclear reasons. Will start Eliquis for anticoagulation Dyspnea/chest pain: Likely from afib with RVR. EKG did show ST changes during afib and the pt likely has underlying CAD but will treat medically H/o diastolic heart failure: appears compensated by exam. H/o CVA HTN -no ASA -add Eliquis 5mg BID -lipitor -metoprolol 25mg PO BID -d/c planning Problems: Consultation Date/Type/Reason Admit Date/Time Jul 17, 2017 at 08:46 Initial Consult Date 07/17/17 Type of Consultation: Cardiology Referring Provider: JULIANN VALDES NP 24 HR Interval Summary Free Text/Dictation Remains in sinus. No o/n events Exam/Review of Systems Vital Signs Vitals Vital Signs Date Time Temp Pulse Resp B/P Pulse Ox O2 Delivery O2 Flow Rate FiO2 07/19/17 04:02 60 07/19/17 04:00 98.5 18 128/56 94 07/17/17 17:03 Room Air Intake and Output 07/18/17 07/18/17 07/19/17 15:00 23:00 07:00 Intake Total 580 ml 600 ml Balance 580 ml 600 ml Exam Constitutional: alert Psych: no complaints Head: atraumatic, normocephalic Neck: No jvd Respiratory: clear to auscultation, diminished breath sounds, No crackles/rales Cardiovascular: regular rate and rhythm, No edema, No systolic murmur Gastrointestinal: non-tender, soft Neurological: nl mental status, nl speech Results Result Diagram: 07/18/17 0510 07/18/17 0510 Results 24 hrs Laboratory Tests Test 07/18/17 08:27 07/18/17 12:07 07/18/17 17:41 07/18/17 21:12 Bedside Glucose 121 101 86 87 Medications Medications Current Medications Diltiazem HCl (Cardizem-D5W 125 Mg/125 ml Drip) 125 ml @ 5 mls/hr TITRATE IV Last administered on 07/17/17t 07:24; Admin Dose 5 MLS/HR; Start 07/17/17 at 07: 30 Ondansetron HCl (Zofran Inj) 4 mg Q6H PRN IV NAUSEA AND/OR VOMITING; Start 07/17/17 at 09:30 Acetaminophen (Tylenol Tab) 650 mg Q6H PRN PO PAIN LEVEL 1-3 OR FEVER; Start 07/17/17 at 09:30 Acetaminophen/ Hydrocodone Bitart ([place] (5/325)) 1 tab Q6H PRN PO PAIN LEVEL 4 -6 Last administered on 07/18/17 03:18; Admin Dose 1 TAB; Start 07/17/17 at 09: 30 Amlodipine Besylate (Norvasc) 5 mg DAILY PO Last administered on 07/18/17 08: 46; Admin Dose 5 MG; Start 07/18/17 at 09:00 Atorvastatin Calcium (Lipitor) 10 mg HS PO Last administered on 07/18/17 21:07 ; Admin Dose 10 MG; Start 07/17/17 at 21:00 Duloxetine HCl (Cymbalta) 30 mg DAILY PO Last administered on 07/18/17 08:45; Admin Dose 30 MG; Start 07/18/17 at 09:00 Furosemide (Lasix) 40 mg DAILY PO Last administered on 07/18/17 08:47; Admin Dose 40 MG; Start 07/18/17 at 09:00 Gabapentin (Neurontin) 300 mg TID PO Last administered on 07/18/17 21:07; Admin Dose 300 MG; Start 07/17/17 at 13:00 Metoprolol Tartrate (Lopressor) 25 mg BID PO Last administered on 07/18/17 21: 07; Admin Dose 25 MG; Start 07/17/17 at 21:00 Enoxaparin Sodium (Lovenox) 65 mg Q12 SC Last administered on 07/18/17 21:14; Admin Dose 65 MG; Start 07/17/17 at 21:00 Diagnostic Test (Pha) (Accu-Chek) 1 ea 02 XX ; Start 07/18/17 at 02:00 Insulin Glargine (Lantus) 10 unit DAILY@08 SC Last administered on 07/18/17 08 :35; Admin Dose 10 UNIT; Start 07/18/17 at 08:00 Miscellaneous Information 1 ea NOTE XX ; Start 07/17/17 at 10:00 Glucose (Glutose) 15 gm Q15M PRN PO DECREASED GLUCOSE; Start 07/17/17 at 10:00 Glucose (Glutose) 22.5 gm Q15M PRN PO DECREASED GLUCOSE; Start 07/17/17 at 10: 00 Dextrose (D50w Syringe) 25 ml Q15M PRN IV DECREASED GLUCOSE; Start 07/17/17 at 10:00 Dextrose (D50w Syringe) 50 ml Q15M PRN IV DECREASED GLUCOSE; Start 07/17/17 at 10:00 Glucagon (Glucagen) 1 mg Q15M PRN IM DECREASED GLUCOSE; Start 07/17/17 at 10:00 Glucose (Glutose) 15 gm Q15M PRN BUCCAL DECREASED GLUCOSE; Start 07/17/17 at 10 :00 TONY MCCLELLAND Jul 19, 2017 07:06
[2017-07-19] MEDS: INSULIN ASPART [NOVOLOG] 3 ML PEN SC SCH ×6 (07:55→18:19)
[2017-07-19] MEDS: INSULIN GLARGINE [LANtus] 3 ML PEN SC SCH (08:09)
[2017-07-19] MEDS ORDERED: APIXABAN 5 MG TABLET PO SCH (09:00)
[2017-07-19] MEDS: DULOXETINE 30 MG CAP DR PO SCH (09:46)
[2017-07-19] MEDS: AMLODIPINE 5 MG TAB PO SCH (09:48)
[2017-07-19] MEDS: METOPROLOL 25 MG TAB PO SCH (09:49)
[2017-07-19] MEDS: FUROSEMIDE 40 MG TAB PO SCH (09:49)
[2017-07-19] MEDS: GABAPENTIN 300 MG CAP PO SCH ×2 (09:51→13:23)
[2017-07-19] MEDS ORDERED: METO-448 PO (11:55)
[2017-07-19] MEDS ORDERED: AMLO-145 PO (11:55)
[2017-07-19] MEDS ORDERED: APIX5TAB PO (11:55)
--- NOTE | 2017-07-19 12:00 | PDOCDIS ---
Discharge Instructions DIAGNOSIS Discharge Diagnosis 1. Atrial fibrillation with RVR. 2. Essential hypertension. 3. Type 2 diabetes. 4. Diabetic neuropathy. 5. Depression. 6. Dyslipidemia. 7. History of stroke. CONDITION Patient Condition: Stable HOME CARE INSTRUCTIONS: Diet Instructions: Low Fat /CholesterolSpecial Diet: carbohydrate controlled FOLLOW UP/APPOINTMENTS Follow-up Plan 1. Follow-up with her primary care provider within a week 2. Follow-up with your farmworker machine in 1-2 weeks. (if unable to, follow up with Dr. Brown Boo in 1-2 weeks) TOMY MURILLO Jul 19, 2017 12:00
[2017-07-19 12:03] LABS: ADD UMIC NO; UR ASCORBIC ACID NEGATIVE (NEGATIVE); UR BILIRUBIN (Dip) NEGATIVE (NEGATIVE); UR BLOOD (Dip) NEGATIVE (NEGATIVE); UR CLARITY CLEAR (CLEAR); UR COLOR YELLOW (YELLOW); UR GLUCOSE (Dip) NEGATIVE (NEGATIVE); UR KETONES (Dip) NEGATIVE (NEGATIVE); UR LEUKOCYTE ESTERASE (Dip) NEGATIVE Leu/ul (NEGATIVE); UR NITRITE (Dip) NEGATIVE (NEGATIVE); UR SPECIFIC GRAVITY (Dip) 1.005 (1.003-1.030); UR TOTAL PROTEIN (Dip) NEGATIVE (NEGATIVE); UR UROBILINOGEN (Dip) NEGATIVE (NEGATIVE)
[2017-07-19] MEDS ORDERED: LANT3I SC (12:06)
[2017-07-19] MEDS ORDERED: NOVO3I SC ×2 (12:06)
[2017-07-19 12:23] LABS: BARBITURATES Negative (NEGATIVE); BENZODIAZEPINES Negative (NEGATIVE); CANNABINOIDS Negative (NEGATIVE); COCAINE Negative (NEGATIVE); OPIATES Negative (NEGATIVE)
--- NOTE | 2017-07-19 13:51 | PN ---
Date/Time of Note Date/Time of Note DATE: 07/19/17 TIME: 13:50 Assessment/Plan VTE Prophylaxis VTE Prophylaxis Intervention: SCD's Lines/Catheters [facility] Saline Lock Urinary Cath still in place: No Assessment/Plan Chief Complaint/Hosp Course Assessment and plan 1. Atrial fibrillation with RVR. Patient status post Cardizem drip. Die Holder following. Rate controlled at present. Follow-up echocardiogram. Continue on Eliquis. Continue on beta-anabel 2. Essential hypertension. Continue antihypertensives and adjust needed 3. Type 2 diabetes. Continue insulin sliding scale. Stable at present. 4. Diabetic neuropathy. Continue with Neurontin 5. Depression. Will continue patient's home medication 6. Dyslipidemia. Continue statin 7. History of stroke. Anticoagulation per clay hoister. Continue on statin Disposition and plan: DC planning. Follow-up with case management for placement Discussed plan of care with Dr. Schultz Problems: Subjective 24 Hr Interval Summary Free Text/Dictation Comfortable at present. No signs or symptoms of distress. Exam/Review of Systems Vital Signs Vitals Vital Signs Date Time Temp Pulse Resp B/P Pulse Ox O2 Delivery O2 Flow Rate FiO2 07/19/17 12:00 74 07/19/17 11:50 98.3 20 132/63 96 07/17/17 17:03 Room Air Intake and Output 07/18/17 07/18/17 07/19/17 15:00 23:00 07:00 Intake Total 580 ml 600 ml Balance 580 ml 600 ml Exam Constitutional: alert Psych: no complaints Head: normocephalic Respiratory: clear to auscultation, normal air movement Cardiovascular: other (Regular rate) Gastrointestinal: non-tender, soft Musculoskeletal: nl extremities to inspection Neurological: nl speech, No nl mental status (Confused with underlying dementia) Skin: nl turgor Results Result Diagram: 07/18/17 0510 07/18/17 0510 Results 24 hrs Laboratory Tests Test 07/18/17 17:41 07/18/17 21:12 07/19/17 07:45 07/19/17 11:00 Bedside Glucose 86 87 123 Urine Color YELLOW Urine Clarity CLEAR Urine pH 6.0 Urine Specific [place] 1.005 Urine Ketones NEGATIVE Urine Nitrite NEGATIVE Urine Bilirubin NEGATIVE Urine Urobilinogen NEGATIVE Urine Leukocyte Esterase NEGATIVE Urine Hemoglobin NEGATIVE Urine Glucose NEGATIVE Urine Total Protein NEGATIVE Urine Opiates Screen Negative Urine Barbiturates Negative Urine Amphetamines Screen Negative Urine Benzodiazepines Screen Negative Urine Cocaine Screen Negative Urine Cannabinoids Negative Test 07/19/17 12:50 Bedside Glucose 161 Medications Medications Current Medications Diltiazem HCl (Cardizem-D5W 125 Mg/125 ml Drip) 125 ml @ 5 mls/hr TITRATE IV Last administered on 07/17/17 07:24; Admin Dose 5 MLS/HR; Start 07/17/17 at 07: 30 Ondansetron HCl (Zofran Inj) 4 mg Q6H PRN IV NAUSEA AND/OR VOMITING; Start 07/17/17 at 09:30 Acetaminophen (Tylenol Tab) 650 mg Q6H PRN PO PAIN LEVEL 1-3 OR FEVER; Start 07/17/17 at 09:30 Acetaminophen/ Hydrocodone Bitart ([place] (5/325)) 1 tab Q6H PRN PO PAIN LEVEL 4 -6 Last administered on 07/18/17 03:18; Admin Dose 1 TAB; Start 07/17/17 at 09: 30 Amlodipine Besylate (Norvasc) 5 mg DAILY PO Last administered on 07/19/17 09: 48; Admin Dose 5 MG; Start 07/18/17 at 09:00 Atorvastatin Calcium (Lipitor) 10 mg HS PO Last administered on 07/18/17 21:07 ; Admin Dose 10 MG; Start 07/17/17 at 21:00 Duloxetine HCl (Cymbalta) 30 mg DAILY PO Last administered on 07/19/17 09:46 ; Admin Dose 30 MG; Start 07/18/17 at 09:00 Furosemide (Lasix) 40 mg DAILY PO Last administered on 07/19/17 09:49; Admin Dose 40 MG; Start 07/18/17 at 09:00 Gabapentin (Neurontin) 300 mg TID PO Last administered on 07/19/17 13:23; Admin Dose 300 MG; Start 07/17/17 at 13:00 Metoprolol Tartrate (Lopressor) 25 mg BID PO Last administered on 07/19/17 09 :49; Admin Dose 25 MG; Start 07/17/17 at 21:00 Enoxaparin Sodium (Lovenox) 65 mg Q12 SC Last administered on 07/18/17 21:14; Admin Dose 65 MG; Start 07/17/17 at 21:00; Status Future Hold Diagnostic Test (Pha) (Accu-Chek) 1 ea 02 XX ; Start 07/18/17 at 02:00 Insulin Glargine (Lantus) 10 unit DAILY@08 SC Last administered on 07/19/17 08:09; Admin Dose 10 UNIT; Start 07/18/17 at 08:00 Miscellaneous Information 1 ea NOTE XX ; Start 07/17/17 at 10:00 Glucose (Glutose) 15 gm Q15M PRN PO DECREASED GLUCOSE; Start 07/17/17 at 10:00 Glucose (Glutose) 22.5 gm Q15M PRN PO DECREASED GLUCOSE; Start 07/17/17 at 10: 00 Dextrose (D50w Syringe) 25 ml Q15M PRN IV DECREASED GLUCOSE; Start 07/17/17 at 10:00 Dextrose (D50w Syringe) 50 ml Q15M PRN IV DECREASED GLUCOSE; Start 07/17/17 at 10:00 Glucagon (Glucagen) 1 mg Q15M PRN IM DECREASED GLUCOSE; Start 07/17/17 at 10:00 Glucose (Glutose) 15 gm Q15M PRN BUCCAL DECREASED GLUCOSE; Start 07/17/17 at 10 :00 Apixaban (Eliquis) 5 mg BID PO Last administered on 07/19/17 09:47; Admin Dose 5 MG; Start 07/19/17 at 09:00 TOMY MURILLO Jul 19, 2017 13:51
== END 2017-07-19 19:30 | disposition home or self-care (01) ==
LOC: E/R 05:30 → TEL 08:46
PROVIDERS: ADMIT Internal Medicine; ATTEND Internal Medicine
DX: I48.0 Paroxysmal atrial fibrillation (principal); R07.9 Chest pain, unspecified; J44.9 Chronic obstructive pulmonary disease, unspecified; E11.40 Type 2 diabetes mellitus with diabetic neuropathy, unspecified; F32.9 Major depressive disorder, single episode, unspecified; I10 Essential (primary) hypertension; Z86.73 Personal history of transient ischemic attack (TIA), and cerebral infarction without residual deficits; E78.5 Hyperlipidemia, unspecified; M13.80 Other specified arthritis, unspecified site; I25.10 Atherosclerotic heart disease of native coronary artery without angina pectoris
CPT/HCPCS: 36415; 71010; 80048; 80061; 80307; 81003; 82550; 82553; 82962; 83036; 83735; 83880; 84100; 84439; 84443; 84484; 85025; 85610; 85730; 93005; 96372; 96374; 96375; 96376; 99291; G0378; J1630; J1650; J1815; J2060

== ENCOUNTER 2017-10-09 16:49 | Emergency (ER) | END 2017-10-09 23:50 | disposition home or self-care (01) ==

== ENCOUNTER 2017-10-20 19:35 | Inpatient (IN) | END 2017-10-26 14:45 | DRG 481 ==